=== PATIENT | male | born 1955 | race Caucasian/White ===

== ENCOUNTER 2023-01-27 19:03 | Emergency (ER) | payer BC, SELFPAY ==
[2023-01-27 19:23] VITALS: BP 133/72; PULSE 95; RESP 14; TEMP 36.6; O2SAT 96; BMI 27.0
--- NOTE | 2023-01-27 20:05 | ED.DIZZY ---
HPI - Dizziness General Chief Complaint: Dizziness/Vertigo Stated Complaint: Lightheaded, vomiting Time Seen by Provider: 01/27/23 19:08 History of Present Illness HPI Narrative: This 68-year-old male comes in reporting 2 episodes of lightheadedness with some brief subsequent vertigo that occurred today. Both times this occurred after passing stool on the toilet. He states that he felt lightheaded when getting up from the toilet and decided to lay down. He eventually recovered from his symptoms. Later he he had a similar event and currently feels normal except he is a bit tired out. He states that he was working outside today and thinks that he did not take enough liquids. He arrives with normal vital signs. He does not report any hearing changes. He is not showing any signs of neurologic deficit. He no longer has any vertigo or lightheadedness symptoms. Does not describe headache, chest pain, or abdominal pain. He is not on any medications and denies any symptoms of infection. He and his did a COVID antigen test prior to arrival with negative results. Related Data Home Medications Medication Instructions Recorded Confirmed No Known Home Medications 01/27/23 01/27/23 Allergies Allergy/AdvReac Type Severity Reaction Status Date / Time No Known Drug Allergies Allergy Verified 01/27/23 19:30 Review of Systems Status of ROS: Reports: 10 or more systems reviewed and unremarkable except as noted in History and below Narrative: Constitutional: No fevers, no weight gain or loss. Eyes: No discharge. No vision changes. HENT: No congestion, no sore throat, no ear pain. Cardiovascular: No chest pain, no palpitations. Respiratory: No shortness of breath, no wheezes, no cough. Gastrointestinal: No abdominal pain, no vomiting, no diarrhea. Genitourinary: No dysuria, no hematuria. Musculoskeletal: Normal range of motion. Skin: No rashes, no pruritis. Neurological: No weakness, sensory change, speech change. Lightheadedness with some vertigo episodes as described above. Endo/Heme/Allergies: No bruising or bleeding. No polydipsia. Pysch: no suicidality, no anxiety, no insomnia. All other systems reviewed and are negative. PFSH PFSH Social History Non-prescribed substance use: denies use Exam Narrative: Exam Narrative: Constitutional: Well-developed, well-nourished, no acute distress. HEENT: Normocephalic, atraumatic. Neck: Normal range of motion. Nontender. Supple. Heart: Regular. No murmurs. Normal rate. Intact distal pulses. Lungs: Clear to auscultation. No chest discomfort. No wheezes, rhonchi, or rales. Abdomen: Normal bowel sounds. Nontender. No rebound tenderness. Genitalia: Deferred. Back: No midline tenderness. Normal range of motion. Extremities: Normal range of motion. No injury. Skin: Intact. No rash. Warm. No erythema or pallor. Neurologic: No altered sensation. No weakness. Alert and oriented. No facial asymmetry. Tongue is midline. [id number] is normal. No pronator drift. He is able to raise each leg from the bed. No nystagmus or vertigo symptoms. Psychiatric: No suicidality. No anxiety or depression. No insomnia. Nursing notes and vitals signs are reviewed. Const: Vital Signs, click to edit/add: Vital Signs - 24 hr 01/27/23 19:23 01/27/23 20:27 01/27/23 20:28 Temperature 97.9 F Pulse Rate 99 98 Pulse Rate [Pulse Oximeter] 95 Respiratory Rate 14 Blood Pressure 137/70 Blood Pressure [Ri ght Upper Arm] 133/72 Pulse Oximetry 96 94 94 Oxygen Delivery Me thod Room Air 01/27/23 20:30 Temperature Pulse Rate 99 Pulse Rate [Pulse Oximeter] Respiratory Rate Blood Pressure Blood Pressure [Ri ght Upper Arm] Pulse Oximetry 94 Oxygen Delivery Me thod Course Vital Signs Vital signs: Initial Vital Signs Temperature 97.9 F 01/27/23 19:23 Temperature Source Temporal Artery Scan 01/27/23 19:23 Pulse Rate 95 01/27/23 19:23 Pulse Rhythm Regular 01/27/23 19:23 Pulse Strength 3+ Normal 01/27/23 19:23 Respiratory Rate 14 01/27/23 19:23 Blood Pressure 133/72 01/27/23 19:23 Blood Pressure Mean 92 01/27/23 19:23 Blood Pressure Position Sitting 01/27/23 19:23 Pulse Oximetry 96 01/27/23 19:23 Oxygen Delivery Method Room Air 01/27/23 19:23 Vital Signs Temperature 97.9 F 01/27/23 19:23 Pulse Rate 95 01/27/23 19:23 Respiratory Rate 14 01/27/23 19:23 Blood Pressure 133/72 01/27/23 19:23 Pulse Oximetry 96 01/27/23 19:23 Oxygen Delivery Method Room Air 01/27/23 19:23 Temperature 97.9 F 01/27/23 19:23 Pulse Rate 99 01/27/23 20:30 Respiratory Rate 14 01/27/23 19:23 Blood Pressure 137/70 01/27/23 20:27 Pulse Oximetry 94 01/27/23 20:30 Oxygen Delivery Method Room Air 01/27/23 19:23 MDM - Dizziness MDM Narrative Medical decision making narrative: This 5-year-old male comes in reporting 2 episodes of lightheadedness with some subsequent vertigo that occurred after passing stool on the toilet. He states that he feels back to normal at this time. He arrives with normal vital signs. He does not have any shortness of breath or chest pain and does not report any cardiac history or dysrhythmia symptoms. He is not showing any signs of symptoms blood clot or other more serious causes for this. EKG today shows normal sinus rhythm without any ST or T-wave abnormalities. His heart rate is in the 90s beats per minute. Lab results returned with normal findings except his blood glucose is a bit elevated at 162. This patient was able to get up and ambulate normally. He has a normal neurologic exam. At the time of discharge the patient appears safe for outpatient management. The treatment plan is reviewed along with written and verbal return precautions. Reasons to return and the importance of close followup were also reviewed. Lab Data Labs: Lab Results 01/27/23 Range/Units 20:15 WBC 8.50 (4.50-11.00) K/uL RBC 4.98 (4.30-5.90) m/uL Hgb 15.9 (13.5-17.5) gm/dL Hct 46.9 (37.0-53.0) % MCV 94 (80-100) fL MCH 32 (26-34) pg MCHC 34 (32-36) gm/dL RDW Coeff of Penny 12.9 (11.5-15.5) % Plt Count 171 (140-440) K/uL Neut % (Auto) 74.6 H (42.0-72.0) % Lymph % (Auto) 17.8 L (20-44) % [place] % (Auto) 6.4 (0.0-11.0) % Eos % (Auto) 0.9 (0.0-7.0) % Baso % (Auto) 0.2 (0.0-3.0) % Neut # (Auto) 6.30 (1.7-7.0) K/uL Lymph # (Auto) 1.50 (0.90-2.90) K/uL [place] # (Auto) 0.50 (0.00-0.90) K/UL Eos # (Auto) 0.08 (0.00-0.50) K/uL Baso # (Auto) 0.02 (0.00-0.30) K/uL Abs Immat Gran (auto) 0.01 (0.00-0.30) K/uL Imm/Tot Granulo (auto) 0.1 % Sodium 136 (135-149) mmol/L Potassium 4.0 (3.6-5.1) mmol/L Chloride 101 (96-114) mmol/L Carbon Dioxide 28 (20-32) mmol/L BUN 21 (7-30) mg/dL Creatinine 0.8 (0.5-1.5) mg/dL Estimated Creat Clear 79.92 Estimated GFR 95 ml/min Glucose 162 H (60-115) mg/dL Calcium 9.2 (8.4-10.6) mg/dL ECG Data Attestation: I personally reviewed and interpreted this ECG as follows: Interpretation: Sinus tachycardia, rate 102 beats per minute. There are no specific ST or T-wave abnormalities. Discharge Plan Discharge Clinical Impression: Near syncope Patient Disposition: Home w/ Parent or Adult Condition: Improved Additional Instructions: Continue current plans. Activity as tolerated. Follow up with MD or return if symptoms are recurrent or worsening. Prescriptions: No Action No Known Home Medications Stand Alone Forms: [employer] Info Instructions
[2023-01-27 20:23] LABS: Basophils Absolute Auto 0.02 K/uL (0.00-0.30); Basophils Percent Auto 0.2 % (0.0-3.0); Eosinophils Absolute Auto 0.08 K/uL (0.00-0.50); Eosinophils Percent Auto 0.9 % (0.0-7.0); Hematocrit 46.9 % (37.0-53.0); Hemoglobin* 15.9 gm/dL (13.5-17.5); Immature Granulocytes Abs Auto 0.01 K/uL (0.00-0.30); Immature Granulocytes Pct Auto 0.1 %; Lymphocytes Percent Auto 17.8 % (20-44); Mean Corpuscular HGB Conc 34 gm/dL (32-36); Mean Corpuscular Hemoglobin 32 pg (26-34); Mean Corpuscular Volume 94 fL (80-100); Monocytes Percent Auto 6.4 % (0.0-11.0); Neutrophils Percent Auto 74.6 % (42.0-72.0); Platelet Count* 171 K/uL (140-440); RDW Coefficient of Variation % 12.9 % (11.5-15.5); Red Blood Count 4.98 m/uL (4.30-5.90); Slide Review Reflex No
[2023-01-27 20:27] VITALS: BP 137/70; PULSE 99; O2SAT 94
[2023-01-27 20:28] VITALS: PULSE 98; O2SAT 94
[2023-01-27 20:30] VITALS: PULSE 99; O2SAT 94
[2023-01-27 20:36] LABS: Chloride* 101 mmol/L (96-114)
[2023-01-27 20:37] LABS: Sodium* 136 mmol/L (135-149)
[2023-01-27 20:39] LABS: Carbon Dioxide* 28 mmol/L (20-32); Creatinine* 0.8 mg/dL (0.5-1.5); Est. Creatinine Clearance* 79.92; Estimated Glomerular Filt Rate 95 ml/min
[2023-01-27 20:40] LABS: Blood Urea Nitrogen* 21 mg/dL (7-30); Calcium* 9.2 mg/dL (8.4-10.6); Glucose* 162 mg/dL (60-115)
== END 2023-01-27 21:35 | disposition home or self-care (01) ==
LOC: ED 21:22
PROVIDERS: Emergency Provider Emergency Medicine Emergency Medical Services
DX: R55 Syncope and collapse (principal)
CPT/HCPCS: 36415; 80048; 85025; 93005; 99283; 99284